=== PATIENT | male | born 1990 | race Caucasian/White ===

== ENCOUNTER 2021-11-16 15:40 | Emergency (ER) | payer OTHER ==
[~2021-11-16] VITALS: Ht 188 cm; Wt 81.7 kg
[2021-11-16] MEDS ORDERED: DOXY100 PO (20:08)
== END 2021-11-16 20:29 | disposition home or self-care (01) ==
LOC: ER 15:40
DX: L02.512 Cutaneous abscess of left hand (principal); L02.511 Cutaneous abscess of right hand; L02.612 Cutaneous abscess of left foot; B95.62 Methicillin resistant Staphylococcus aureus infection as the cause of diseases classified elsewhere
CPT/HCPCS: A9270